=== PATIENT | female | born 1990 | race Caucasian/White ===

== ENCOUNTER 2024-11-27 08:38 | Inpatient (IN) | payer MEDICAID, OTHER ==
[~2024-11-27] VITALS: Ht 170.2 cm; Wt 95.3 kg
[2024-11-27 09:19] LABS: APPEARANCE,URINE SLIGHTLY CLOUDY (CLEAR); BILIRUBIN,URINE NEGATIVE (NEGATIVE); BLOOD, URINE TRACE-INTA Ery/uL (NEGATIVE); COLOR,URINE YELLOW (YELLOW); KETONES,URINE 3+ mg/dL (NEGATIVE); LEUKOCYTE ESTERASE ,URINE TRACE (NEGATIVE); NITRITE, URINE NEGATIVE (NEGATIVE); PH,URINE 7.5 (5.0-8.0); PROTEIN,URINE TRACE mg/dl (NEGATIVE); UGLUCOSE NEGATIVE (NEGATIVE); UROBILINOGEN,URINE 0.2 EU/dL (0.2)
[2024-11-27 09:20] LABS: PREGNANCY TEST URINE QUAL NEGATIVE (NEGATIVE)
[2024-11-27] MEDS ORDERED: ONDANSETRON HCL/PF 4 MG/2 ML VIAL ONE (09:20)
[2024-11-27] MEDS ORDERED: MORPHINE SULFATE INJ 4 MG/ML DISP.SYRIN ONE (09:21)
[2024-11-27 09:23] LABS: BASOPHILS % (AUTO) 0.1 % (0.0-2.0); EOSINOPHILS % (AUTO) 0.2 % (0.0-6.0); HEMATOCRIT 45 % (33-45); HEMOGLOBIN 15.4 g/dL (11.5-14.8); LYMPHOCYTES # (AUTO) 1.5 K/uL (0.8-4.8); LYMPHOCYTES % (AUTO) 8.6 % (20.0-44.0); MEAN CORPUSCULAR HEMOGLOBIN 33 PG (26.0-33.0); MEAN CORPUSCULAR HGB CONC 34 g/dl (31.0-36.0); MEAN CORPUSCULAR VOLUME 97 fL (82-100); MONOCYTES # (AUTO) 0.7 K/uL (0.1-1.30); MONOCYTES % (AUTO) 4.1 % (2.0-12.0); NEUTROPHILS # (AUTO) 15.3 K/uL (1.8-8.9); PLATELET COUNT (AUTO) 254 K/uL (150-450); RED BLOOD CELL COUNT(AUTO) 4.65 MIL/uL (4.0-5.2); RED CELL DISTRIBUTION WIDTH 13.4 % (11.5-15.0); WHITE BLOOD COUNT (AUTO) 17.5 K/uL (4.3-11.0)
[2024-11-27 09:31] LABS: CALCIUM, SERUM 9.5 mg/dL (8.5-10.1); CREATININE 0.9 mg/dL (0.6-1.3); POTASSIUM 3.3 mmol/L (3.5-5.1)
[2024-11-27] MEDS: IV NS 0.9% 1,000 ML BAG IV ONE ×2 (09:35→13:19)
[2024-11-27] MEDS: ONDANSETRON HCL/PF 4 MG/2 ML VIAL IVP ONE (09:36)
[2024-11-27] MEDS: MORPHINE SULFATE INJ 2 MG/ML DISP.SYRIN IV ONE (09:36)
[2024-11-27 09:37] LABS: ALBUMIN 4.6 g/dL (3.4-5.0); BILIRUBIN,DIRECT 0.2 mg/dL (0.0-0.2); BILIRUBIN,TOTAL 0.6 mg/dL (0.2-1.0); TOTAL PROTEIN, SERUM 8.3 g/dL (6.4-8.2)
[2024-11-27 09:44] LABS: ADD URINE CULTURE YES; BACTERIA,URINE Few /HPF (None Seen)
[2024-11-27] MEDS ORDERED: HYDROMORPHONE 1 MG/1 ML DISP.SYRIN ONE ×2 (10:41→23:18)
[2024-11-27] MEDS: HYDROMORPHONE 1 MG/1 ML DISP.SYRIN IV ONE (10:50)
[2024-11-27] MEDS ORDERED: CT SWABBABLE VALVE TRANS SET 1 EA INFUS.SET MC ONE (10:53)
[2024-11-27] MEDS ORDERED: IOHEXOL-300 100 ML VIAL IV ONE (10:53)
[2024-11-27] MEDS ORDERED: IV NS 0.9% 250 ML IV ONE (10:53)
[2024-11-27] MEDS: PIPERACILLIN /TAZOBACTAM 3.375 G in IV D5W 50 ML IV ONE (12:37)
[2024-11-27] MEDS ORDERED: CETI-90 PO (12:48)
[2024-11-27 12:51] LABS: INR 1.02 (0.91-1.10); PARTIAL THROMBOPLASTIN TIME 29.1 SEC (24.3-34.3); PROTHROMBIN TIME 10.8 SECS (9.2-11.1)
[2024-11-27] MEDS ORDERED: ONDANSETRON HCL/PF 4 MG/2 ML VIAL IVP PRN (14:30)
[2024-11-27] MEDS ORDERED: ACETAMINOPHEN 325 MG TABLET PO PRN (14:30)
[2024-11-27 17:00] VITALS: BP 103/63; TEMP 97.9; O2SAT 100
[2024-11-27] MEDS: IV NS 0.9% 1,000 ML IV PRN (17:14)
[2024-11-27] MEDS: PIPERACILLIN /TAZOBACTAM 3.375 G in IV D5W 50 ML IV SCH (18:09)
[2024-11-27] MEDS: MORPHINE SULFATE INJ 2 MG/ML DISP.SYRIN IV PRN (18:14)
[2024-11-27] MEDS: POTASSIUM CL. PREMIX PERIPHER. 50 ML IV SCH (19:53)
[2024-11-27 20:40] VITALS: BP 115/60; TEMP 99; O2SAT 100
[2024-11-27] MEDS ORDERED: MORPHINE SULFATE/PF 10 MG/10ML (1MG/ML) AMPUL ONE (20:56)
[2024-11-27] MEDS ORDERED: MIDAZOLAM HCL 2 MG/2ML VIAL ONE (20:56)
[2024-11-27] MEDS ORDERED: FENTANYL PF 100MCG/2ML AMPUL ONE (20:56)
[2024-11-27] MEDS ORDERED: ROCURONIUM BROMIDE 50 MG/5 ML ONE (20:57)
[2024-11-27] MEDS ORDERED: SUCCINYLCHOLINE CHLORIDE 20 MG/ML VIAL ONE (20:57)
[2024-11-27] MEDS ORDERED: ANESTHESIA TRAY IN PYXIS 1 EA TRAY MC ONE (21:01)
[2024-11-27] MEDS ORDERED: LIDOCAINE 1%-EPI 1:100,000 20 ML VIAL ONE (21:01)
[2024-11-27] MEDS ORDERED: BUPIVACAINE 0.5 % PF 150 MG/30 ML VIAL ONE (21:01)
[2024-11-27] MEDS: HYDROMORPHONE INJ 2 MG/ML DISP.SYRIN IV PRN (23:19)
[2024-11-27] MEDS ORDERED: HYDROMORPHONE INJ 2 MG/ML DISP.SYRIN IV PRN (23:30)
[2024-11-28 00:12] VITALS: BP 110/66; TEMP 98.4; O2SAT 99
[2024-11-28 04:42] VITALS: BP 103/62; TEMP 97.3; O2SAT 95
[2024-11-28 07:21] LABS: BASOPHILS % (AUTO) 0.4 % (0.0-2.0); EOSINOPHILS # (AUTO) 0.1 K/uL (0.0-0.7); EOSINOPHILS % (AUTO) 0.5 % (0.0-6.0); HEMATOCRIT 34 % (33-45); HEMOGLOBIN 12.2 g/dL (11.5-14.8); LYMPHOCYTES # (AUTO) 2.3 K/uL (0.8-4.8); LYMPHOCYTES % (AUTO) 21.8 % (20.0-44.0); MEAN CORPUSCULAR HEMOGLOBIN 35 PG (26.0-33.0); MEAN CORPUSCULAR HGB CONC 36 g/dl (31.0-36.0); MEAN CORPUSCULAR VOLUME 96 fL (82-100); MONOCYTES # (AUTO) 0.7 K/uL (0.1-1.30); MONOCYTES % (AUTO) 6.6 % (2.0-12.0); NEUTROPHILS # (AUTO) 7.6 K/uL (1.8-8.9); NEUTROPHILS % (AUTO) 70.7 % (43.0-81.0); PLATELET COUNT (AUTO) 171 K/uL (150-450); RED CELL DISTRIBUTION WIDTH 13.3 % (11.5-15.0); WHITE BLOOD COUNT (AUTO) 10.7 K/uL (4.3-11.0)
[2024-11-28] MEDS ORDERED: HYDR-3972 PO (07:44)
[2024-11-28] MEDS ORDERED: METR500T PO (07:44)
[2024-11-28] MEDS ORDERED: CIPR-262 PO (07:44)
[2024-11-28 08:00] VITALS: BP 114/73; TEMP 98.8; O2SAT 98
[2024-11-28 08:01] LABS: CALCIUM, SERUM 7.8 mg/dL (8.5-10.1); CREATININE 0.9 mg/dL (0.6-1.3); MAGNESIUM 1.7 mg/dL (1.8-2.4); PHOSPHORUS 2.7 mg/dL (2.5-4.9); POTASSIUM 3.6 mmol/L (3.5-5.1)
[2024-11-28] MEDS: PANTOPRAZOLE 40 MG VIAL IV SCH (09:29)
[2024-11-28] MEDS: Magnesium 1GM/D5W 100ML PREMIX 100 ML IV SCH (10:17)
[2024-11-28 16:00] VITALS: BP 97/74; TEMP 97.9; O2SAT 96
[2024-11-28 20:00] VITALS: BP 108/62; TEMP 97.9; O2SAT 100
[2024-11-29 04:00] VITALS: BP 111/58; TEMP 98.2; O2SAT 94
[2024-11-29 08:00] VITALS: BP 112/72; TEMP 98.4; O2SAT 98
[2024-11-29 16:00] VITALS: BP 121/68; TEMP 97.3; O2SAT 100
== END 2024-11-29 16:03 | disposition home or self-care (01) | DRG 398 ==
LOC: ER 08:50 → MEDSG1 16:13
PROVIDERS: ADMIT Nurse Practitioner Acute Care; ATTEND Nurse Practitioner Acute Care
PROC: 0DTJ4ZZ Resection of Appendix, Percutaneous Endoscopic Approach (ICD-10-PCS; principal; 2024-11-27 21:00)
DX: K35.32 Acute appendicitis with perforation, localized peritonitis, and gangrene, without abscess (principal); D68.59 Other primary thrombophilia; N39.0 Urinary tract infection, site not specified; B96.89 Other specified bacterial agents as the cause of diseases classified elsewhere; E87.6 Hypokalemia; E66.9 Obesity, unspecified; Z68.32 Body mass index [BMI] 32.0-32.9, adult; N83.12 Corpus luteum cyst of left ovary; N83.202 Unspecified ovarian cyst, left side; Z88.2 Allergy status to sulfonamides
CPT/HCPCS: 36415; 76705-TC; 80048-TC; 80076-TC; 81001; 83690-TC; 83735-TC; 84100-TC; 84703-TC; 85025-TC; 85610-TC; 85730-TC; 87086-TC; A4223; G0378; J0330; J0690; J1171; J1885; J2250; J2270; J2274; J2405; J2470; J2543; J2704; J2765; J3010; J3475; J3480; J3490; J7030; J7050; J7060; Q9967